=== PATIENT | female | born 1950 | race Caucasian/White ===

== ENCOUNTER → 2020-08-19 | Emergency (ER) | payer BC, MEDICARE ==
[~2020-08-19] MED LIST: Cefepime 2 GM VIAL ONE; Furosemide 40 MG/4 ML VIAL ONE
--- NOTE | 2020-08-19 19:23 | RAD ---
RIGHT HIP: Single image obtained. INDICATION: Hip pain. FINDINGS: Poor evaluation due to soft tissue attenuation. No definite fracture identified at the hip. There is a lucency seen through the inferior pubic ramus at the pubic bone which is indeterminate. There is ev idence of degenerative change at the hip. IMPRESSION: Suboptimal exam. The hip appears intact on this single view. There is a linear lucency at the inferio r pubic ramus which could be artifactual but is indeterminate on this suboptimal study. Consider furt her evaluation with better imaging as indicated. POS: ANNALEE
--- NOTE | 2020-08-19 19:24 | RAD ---
PORTABLE SUPINE CHEST: Date: 08/19/2020 INDICATION: Shortness of breath. COMPARISON: Chest exam 07/01/2020. FINDINGS: Cardiomegaly with vascular congestion. Small bilateral effusions. The chest is similar in appearance to the prior study. There is a PICC line in place which appears in adequate position overlying the SV C. IMPRESSION: Cardiomegaly with vascular congestion and small effusions. Hazy edema may be present. POS: AGW
[2020-08-20 14:50] LABS: Albumin 3.7 g/dL (3.4-4.8); Alkaline Phosphatase 86 U/L (40-110); Anion Gap 15 mmol/L (10-20); BUN (Urea Nitrogen) 48 mg/dL (9.8-20.1); Bilirubin, Total 0.4 mg/dL (0.2-1.2); Calc. Creatinine Clearance 0 mL/min (70-130); Calcium 8.5 mg/dL (7.8-10.44); Carbon Dioxide 28 mmol/L (23-31); Chloride 107 mmol/L (98-107); Glucose 139 mg/dL (83-110); Potassium 5.6 mmol/L (3.5-5.1); Protein, Total 6.5 g/dL (5.8-8.1); Sodium 144 mmol/L (136-145)
[2020-08-20 14:51] LABS: ALT (SGPT) 14 U/L (8-55); AST (SGOT) 13 U/L (5-34)
[2020-08-20 14:52] LABS: Globulin 2.8 g/dL (2.4-3.5)
[2020-08-20 14:53] LABS: Troponin I 0.017 ng/mL (< 0.028)
[2020-08-20 14:58] LABS: Base Excess-Venous 0.7 mmol/L (-2.0 to 3.0); Bicarbonate (HCO3v) 30.7 mmol/L (22.0-28.0); CO2 Tension (PvCO2) 78.5 mmHg (40.0-50.0); vO2 Saturation-calc 99.4 % (60.0-85.0)
[2020-08-20 14:59] LABS: Calcium, Ionized 1.18 mmol/L (1.15-1.33); Chloride 109 mmol/L (98-107); Hemoglobin - Calc 12.3 g/dL (12.0-16.0); Potassium 5.7 mmol/L (3.5-5.1); Sodium 143 mmol/L (138-145); T. Carbon Dioxide 33.1 mmol/L (22.0-28.0)
[2020-08-20 15:01] LABS: Mean Corpuscular Hemoglobin 24.9 pg (27.0-31.0); Mean Corpuscular Volume 88.8 fL (78.0-98.0); Red Blood Cell (RBC) Count 4.01 mill/uL (4.20-5.40)
[2020-08-20 15:02] LABS: #Lymphocytes 0.8 thou/uL (1.20-3.40); #Monocytes 0.8 thou/uL (0.11-0.59); #Neutrophils 5.9 thou/uL (1.40-6.50); %Basophils 0.6 % (0.0-1.0); %Eosinophils 3.1 % (0.0-10.0); %Lymphocytes 10.6 % (21.0-51.0); %Monocytes 10.3 % (0.0-10.0); %Neutrophils 75.5 % (42.0-75.0); Mean Corpuscular HGB CONC 28.1 g/dL (32.0-36.0); Mean Platelet Volume 9.7 fL (7.4-10.4); Platelet Count 294 thou/uL (130-400); RBC Distribution Width 17.9 % (11.5-14.5)
[2020-08-20 15:03] LABS: #Eosinphils 0.2 thou/uL (0.0-0.7); Platelet Morphology Comment Appears Adequate; RBC Morphology Normal
[2020-08-20 15:04] LABS: White Blood Cell (WBC) Count 7.8 thou/uL (4.8-10.8)
== END ==
LOC: MADERS 13:10
DX: G93.40 Encephalopathy, unspecified (principal); N17.9 Acute kidney failure, unspecified; R06.89 Other abnormalities of breathing; R09.02 Hypoxemia; M25.551 Pain in right hip; I48.91 Unspecified atrial fibrillation; I11.0 Hypertensive heart disease with heart failure; I50.9 Heart failure, unspecified; E11.9 Type 2 diabetes mellitus without complications; E78.00 Pure hypercholesterolemia, unspecified; E78.5 Hyperlipidemia, unspecified
CPT/HCPCS: 36415; 71045; 82330; 82803; 83880; 84484; 87040; 96365; 96375; J0692; J1940; J3370